=== PATIENT | male | born 1980 | race Two or more races ===

== ENCOUNTER 2016-11-18 01:36 | Emergency (ER) | payer SELFPAY ==
--- NOTE | 2016-11-18 02:26 | EDM.PDOC ---
ED HPI GENERAL MEDICAL PROBLEM - General Chief Complaint: Chest Pain Stated Complaint: CHEST PAIN Time Seen by Provider: 11/18/16 01:54 Source of Information: Reports: Patient, RN Notes Reviewed, Other (Friend) History Limitations: Reports: No Limitations - History of Present Illness INITIAL COMMENTS - FREE TEXT/NARRATIVE: The patient states that he developed pleuritic pain to the anterior lower right ribs this past 11/16/2016. Initially, the pain was mild, but it has gotten worse. He states that he is not having pain if remains perfectly still, unless he is in a certain position. He denies recent cough, dyspnea, or fever. He states that he has been taking Advil, without relief. No prior similar symptoms. The patient does not have a PCP. Treatments COMPONENT TECHNICIAN: Reports: Acetaminophen Right Chest Pain Score (Numeric/FACES): 8 - Related Data Allergies Allergy/AdvReac Type Severity Reaction Status Date / Time milk Allergy Cannot Verified 11/18/16 01:53 Remember Home Meds: Home Meds Orphenadrine [Norflex] 1 tab PO Q12H #20 tab.er 11/18/16 [Rx] Past Medical History - Past Surgical History GI Surgical History: Reports: Hernia, Abdominal (umbilical) Social & Family History - Tobacco Use Smoking Status *Q: Current Every Day Smoker Years of Tobacco use: 17 Packs/Tins Daily: 0.2 Packs/Tins Daily Comment: down from 02/09 ppd - Caffeine Use Caffeine Use: Reports: Coffee, Soda - Alcohol Use Alcohol Use History: No - Recreational Drug Use Recreational Drug Use: Yes Drug Use in Last 12 Months: Yes Recreational Drug Type: Reports: Marijuana/Hashish Recreational Drug Use Frequency: Socially - Living Situation & Occupation Living situation: Reports: with Family Occupation: Employed (Fast food) ED ROS GENERAL - Review of Systems Review Of Systems: See Below Constitutional: Reports: No Symptoms HEENT: Reports: No Symptoms Respiratory: Reports: No Symptoms Cardiovascular: Reports: No Symptoms Endocrine: Reports: No Symptoms GI/Abdominal: Reports: No Symptoms : Reports: No Symptoms Musculoskeletal: Reports: No Symptoms Skin: Reports: No Symptoms Neurological: Reports: No Symptoms Psychiatric: Reports: No Symptoms Hematologic/Lymphatic: Reports: No Symptoms Immunologic: Reports: No Symptoms ED EXAM, GENERAL - Physical Exam Exam: See Below Exam Limited By: No Limitations General Appearance: Alert, WD/WN, Mild Distress (tearful, anxious) Eye Exam: Bilateral Eye: Normal Inspection Ears: Normal External Exam, Hearing Grossly Normal Nose: Normal Inspection, No Blood Throat/Mouth: Normal Inspection, Normal Lips, Normal Voice, No Airway Compromise Head: Atraumatic, Normocephalic Neck: Normal Inspection, Full Range of Motion Respiratory/Chest: No Respiratory Distress, No Accessory Muscle Use, Crackles ( [place] over the anterior lower right ribs, at the site of the patient's pain), Other (Minimal tenderness to palpation over the anterior right lower ribs) Cardiovascular: Normal Peripheral Pulses, Regular Rate, Rhythm, No Gallop, No JVD, No Murmur, No Rub Peripheral Pulses: 4+: Radial (L), Radial (R) GI/Abdominal: Normal Bowel Sounds, Soft, Non-Tender (Including to the right upper quadrant), No Organomegaly, No Distention, No Abnormal Bruit, No Mass (Male) Exam: Deferred Rectal (Males) Exam: Deferred Back Exam: Normal Inspection, Full Range of Motion, NT Extremities: Normal Inspection, Normal Range of Motion, No Pedal Edema, Normal Capillary Refill Neurological: Alert, Oriented, Normal Cognition, No Motor/Sensory Deficits Psychiatric: Normal Affect, Anxious Skin Exam: Warm, Dry, Intact, Normal Color, No Rash Course - Vital Signs Last Recorded V/S: Last Vital Signs Temp 36.9 C 11/18/16 01:50 Pulse 64 11/18/16 01:50 Resp 20 11/18/16 01:50 BP 138/99 H 11/18/16 01:50 Pulse Ox 99 11/18/16 01:50 - Orders/Labs/Meds Orders: Active Orders 24 hr Category Date Time Status Chest 2V [CR] Stat Exams 11/18/16 02:17 Taken Labs: Laboratory Tests 11/18/16 11/18/16 11/18/16 Range/Units 02:30 02:30 02:30 WBC 6.73 (4.23-9.07) K/mm3 RBC 4.50 L (4.63-6.08) M/mm3 Hgb 13.9 (13.7-17.5) gm/L Hct 40.0 L (40.1-51.0) % MCV 88.9 (79.0-92.2) fl MCH 30.9 (25.7-32.2) pg MCHC 34.8 (32.2-35.5) g/dl RDW Std Deviation 43.0 (35.1-43.9) fL Plt Count 211 (163-337) K/mm3 MPV 10.0 (9.4-12.3) fl Neutrophils % (Manual) 32 L (40-60) % Band Neutrophils % 0 (0-10) % Lymphocytes % (Manual) 61 H (20-40) % Atypical Lymphs % 0 % Monocytes % (Manual) 5 (2-10) % Eosinophils % (Manual) 0 L (0.8-7.0) % Basophils % (Manual) 2 H (0.2-1.2) Platelet Estimate Adequate RBC Morph Comment Normal PT 9.8 (8.0-13.0) SECONDS INR 0.90 APTT 27 (22-36) SECONDS D-Dimer, Quantitative 0.23 (0.19-0.59) mg/L Sodium 140 (136-145) mEq/L Potassium 3.8 (3.5-5.1) mEq/L Chloride 105 (98-107) mEq/L Carbon Dioxide 25 (21-32) mEq/L Anion Gap 13.8 (5-15) BUN 13 (7-18) mg/dL Creatinine 0.9 (0.7-1.3) mg/dL Est Cr Clr Drug Dosing 110.25 mL/min Estimated GFR (MDRD) > 60 (>60) mL/min BUN/Creatinine Ratio 14.4 (14-18) Glucose 103 (74-106) mg/dL Calcium 8.8 (8.5-10.1) mg/dL Total Bilirubin 0.5 (0.2-1.0) mg/dL AST 16 (15-37) U/L ALT 20 (16-63) U/L Alkaline Phosphatase 55 (46-116) U/L Total Protein 7.1 (6.4-8.2) g/dl Albumin 3.8 (3.4-5.0) g/dl Globulin 3.3 gm/dL Albumin/Globulin Ratio 1.2 (1-2) Meds: Medications Discontinued Medications Generic Name Dose Route Start Last Admin Trade Name Freq PRN Reason Stop Dose Admin Orphenadrine Citrate 100 mg 11/18/16 03:02 11/18/16 03:12 Norflex PO 11/18/16 03:03 100 mg ONETIME STA Administration - Re-Assessments/Exams Free Text/Narrative Re-Assessment/Exam: 11/18/16 03:01 Two-view chest radiograph appears to be grossly normal. Cardiac silhouette is within normal limits. No pulmonary vascular congestion. No pleural effusions. No focal infiltrate, although cannot exclude platelike atelectasis at the right base. No pneumothorax. Formal read per the Radiologist pending. 11/18/16 03:14 Test results discussed with the patient and his friend. Today's workup is entirely unremarkable. Clinically, I suspect that the patient is suffering from spasm of an intercostal muscle. I have started the patient on Norflex, and will e-prescribe the same. Departure - Departure Time of Disposition: 03:14 Disposition: Home, Self-Care 01 Condition: Good Clinical Impression: Intercostal muscle pain - Discharge Information Referrals: PCP,None [Primary Care Provider] - Forms: ED Department Discharge Additional Instructions: You were seen in the emergency room for lower right rib pain with breathing. Workup in the ER included blood work and a chest x-ray. Your entire workup was unremarkable. You do not have pneumonia. You do not have a collapsed lung. You do not have a blood clot in your lungs. The cause of your pain is MOST LIKELY due to a spasm of some intercostal muscles. You have been started on the muscle relaxant Norflex. Take one tablet every 12 hours, starting this afternoon, 11/18/2016. You may also take [id number] ibuprofen, 2-3 tablets (400-600 mg) up to every 8 hours, with food, as needed for discomfort. If any other problems, please do not hesitate to return to the ER. - My Orders Last 24 Hours: My Active Orders 11/18/16 02:17 Chest 2V [CR] Stat - Assessment/Plan Last 24 Hours: My Active Orders 11/18/16 02:17 Chest 2V [CR] Stat
[2016-11-18] MEDS ORDERED: Orphenadrine 100 MG Tab.ER PO STA (03:02)
--- NOTE | 2016-11-18 08:21 | CR ---
Chest: Two views of the chest were obtained. Comparison: No prior chest x-ray. Minimal atelectasis is seen within both costophrenic angles. Lungs otherwise are clear. Heart size and mediastinum are within normal limits. Bony structures appear unremarkable. Impression: 1. Minimal atelectasis. Nothing acute is otherwise seen on two-view chest x-ray. Diagnostic code #2
== END 2016-11-18 03:23 | disposition home or self-care (01) ==
LOC: JD.ED 01:36
DX: M79.1 Myalgia (principal); F17.210 Nicotine dependence, cigarettes, uncomplicated; Z91.011 Allergy to milk products
CPT/HCPCS: 36415; 71020; 80053; 85025; 85379; 85610; 85730; 99284; A9270

== ENCOUNTER 2017-05-28 20:31 | Emergency (ER) | payer SELFPAY ==
[2017-05-28] MEDS ORDERED: Ketorolac 60 MG/2 ML SDV IM ONE (21:14)
--- NOTE | 2017-05-28 21:14 | EDM.PDOC ---
ED HPI GENERAL MEDICAL PROBLEM - General Chief Complaint: Back Pain or Injury Stated Complaint: NECK AND BACK PAIN Time Seen by Provider: 05/28/17 20:33 Source of Information: Reports: Patient History Limitations: Reports: No Limitations - History of Present Illness INITIAL COMMENTS - FREE TEXT/NARRATIVE: This is a 36-year-old male. He states he woke up at 6 AM this morning with upper back and neck pain. Apparently he's had this in the past and normally takes some ibuprofen and used some icy hot but it hasn't been helping. He tried to get into the chiropractor this evening but they were closed. I asked him why he didn't go sooner since it's been hurting since 6 AM he says he slept late. He complains of soreness in his upper thoracic lower cervical area. He states occasionally he'll get some tingling in his arms but nothing right now. All that he's used at home has not been helping. I indicated to him that once his fianc is here I will give him a shot and give him a muscle relaxer and he needs to follow up with the chiropractor tomorrow if he is able. Left Upper Back Pain Score (Numeric/FACES): 8 - Related Data Allergies Allergy/AdvReac Type Severity Reaction Status Date / Time milk Allergy Cannot Verified 11/18/16 01:53 Remember Home Meds: Home Meds . [No Known Home Meds] 05/28/17 [History] Past Medical History - Past Surgical History GI Surgical History: Reports: Hernia, Abdominal Other GI Surgeries/Procedures: with mesh Social & Family History - Tobacco Use Smoking Status *Q: Current Every Day Smoker Years of Tobacco use: 15 Packs/Tins Daily: 0.3 - Caffeine Use Caffeine Use: Reports: Coffee, Energy Drinks, Soda, Tea - Recreational Drug Use Recreational Drug Use: No Drug Use in Last 12 Months: Yes Recreational Drug Type: Reports: Marijuana/Hashish Recreational Drug Use Frequency: Socially - Living Situation & Occupation Living situation: Reports: with Family Occupation: Employed (Fast food) ED ROS GENERAL - Review of Systems Review Of Systems: See Below Constitutional: Denies: Fever, Chills HEENT: Reports: No Symptoms Respiratory: Reports: No Symptoms Cardiovascular: Reports: No Symptoms Endocrine: Reports: No Symptoms GI/Abdominal: Reports: No Symptoms : Reports: No Symptoms Musculoskeletal: Reports: Neck Pain, Back Pain Skin: Reports: No Symptoms Neurological: Reports: Tingling Psychiatric: Reports: No Symptoms Hematologic/Lymphatic: Reports: No Symptoms ED EXAM, UPPER BACK/NECK PAIN - Physical Exam Exam: See Below Exam Limited By: No Limitations General Appearance: Alert, WD/WN, No Apparent Distress Eye Exam: Bilateral Eye: Normal Inspection Ears Exam: Normal External Exam Nose Exam: Normal Inspection Throat/Mouth Exam: Normal Inspection, Normal Lips, Normal Voice, No Airway Compromise Head Exam: Normocephalic Neck Exam: Other (Palpation of the base of the neck reveals some trapezius muscle tenderness, he tends to not want to turn his head or flex it or extend it he says because it hurts and he is able to lie down and sit up despite the neck stiffness. He has no nuchal rigidity however.) Cardiovascular/Respiratory: Regular Rate, Rhythm Back Exam: Other (The upper rhomboids and trapezius muscles are tender on palpation, he tends to be somewhat apprehensive when I palpate those muscles, the mid and lower back are nontender and he moves freely with those areas) Extremities: Normal Inspection, Normal Range of Motion Neurologic: No Motor/Sensory Deficits, Alert, Oriented x 3 Psychiatric: Normal Affect, Normal Mood Skin Exam: Normal Color, Warm/Dry Course - Vital Signs Last Recorded V/S: Last Vital Signs Temp 98.7 F 05/28/17 20:55 Pulse 111 H 05/28/17 21:26 Resp 14 05/28/17 21:26 BP 93/71 05/28/17 21:26 Pulse Ox 99 05/28/17 21:26 - Orders/Labs/Meds Meds: Medications Discontinued Medications Generic Name Dose Route Start Last Admin Trade Name Tonyq PRN Reason Stop Dose Admin Ketorolac Tromethamine 60 mg 05/28/17 21:14 05/28/17 21:24 Toradol IM 05/28/17 21:15 60 mg ONETIME ONE Administration Orphenadrine Citrate 100 mg 05/29/17 21:15 05/28/17 21:24 Norflex PO 05/29/17 21:16 100 mg ONETIME ONE Administration Orphenadrine Citrate Confirm 05/28/17 21:22 05/28/17 21:31 Norflex Administered 05/28/17 21:23 Not Given Dose 100 mg .ROUTE .STK-MED ONE Departure - Departure Time of Disposition: 21:12 Disposition: Home, Self-Care 01 Condition: Good Clinical Impression: Muscle tightness Cervical strain Qualifiers: Encounter type: initial encounter Qualified Code(s): S16.1XXA - Strain of muscle, fascia and tendon at neck level, initial encounter Strain of thoracic spine Qualifiers: Encounter type: initial encounter Qualified Code(s): S29.019A - Strain of muscle and tendon of unspecified wall of thorax, initial encounter - Discharge Information Instructions: Cervical Strain and Sprain Rehab-Sports[facility], Thoracic Strain, Easy -to-Read Referrals: PCP,None [Primary Care Provider] - Forms: ED Department Discharge Additional Instructions: When you go home and try a heating pad, rest and sleep as much as possible, follow-up your chiropractor tomorrow for reevaluation and manipulation of your neck and upper back, return to the ER if needed
[2017-05-28] MEDS ORDERED: Orphenadrine 100 MG Tab.ER ONE (21:22)
[2017-05-29] MEDS ORDERED: Orphenadrine 100 MG Tab.ER PO ONE (21:15)
== END 2017-05-28 21:38 | disposition home or self-care (01) ==
LOC: JD.ED 20:31
DX: S16.1XXA Strain of muscle, fascia and tendon at neck level, initial encounter (principal); S29.019A Strain of muscle and tendon of unspecified wall of thorax, initial encounter; F17.210 Nicotine dependence, cigarettes, uncomplicated; Z91.011 Allergy to milk products; X58.XXXA Exposure to other specified factors, initial encounter
CPT/HCPCS: 96372; 99283; A9270; J1885

== ENCOUNTER 2017-07-20 14:11 | Emergency (ER) | payer SELFPAY ==
--- NOTE | 2017-07-20 15:56 | EDM.PDOC ---
ED HPI GENERAL MEDICAL PROBLEM - General Chief Complaint: Gastrointestinal Problem Stated Complaint: TROUBLE WITH URINATION AND BOWELS Time Seen by Provider: 07/20/17 14:56 Source of Information: Reports: Patient History Limitations: Reports: No Limitations - History of Present Illness INITIAL COMMENTS - FREE TEXT/NARRATIVE: 36 year old male presents for evaluation and treatment of multiple complaints. Patient reprots he is having difficulty passing stool. He has only been having small, hard bowel movements daily. Reports feeling uncomfortable and an odd sensation in his abdomen. Denies any melanic stools. Questionable blood in his stool wednesday after intercourse with his partner but none since. Reports no dietary changes. No fevers, chills, nausea or vomiting. Robbin also reports he is having difficulty urinating. State she has to force his urine out. Only dribbling a small amount of urine. No dysuria. No penile discharge. Patient has also noticed small lumps to his right groin fo the last year. They are not tender. Easily movable. HE has been checking them regularity and they have not changed. Patient does not have a PCP. Treatments FITNESS SUPERVISOR: Reports: Other (see below) Other Treatments FITNESS SUPERVISOR: enema abdomen Pain Score (Numeric/FACES): 4 - Related Data Allergies Allergy/AdvReac Type Severity Reaction Status Date / Time milk Allergy Cannot Verified 07/22/17 06:20 Remember Home Meds: Home Meds . [No Known Home Meds] 05/28/17 [History] Past Medical History - Past Health History Medical/Surgical History: Denies Medical/Surgical History - Past Surgical History GI Surgical History: Reports: Hernia, Abdominal Other GI Surgeries/Procedures: with mesh Social & Family History - Family History Family Medical History: Noncontributory - Tobacco Use Smoking Status *Q: Former Smoker Used Tobacco, but Quit: No - Caffeine Use Caffeine Use: Reports: Coffee, Soda - Recreational Drug Use Recreational Drug Use: No - Living Situation & Occupation Living situation: Reports: with Family Occupation: Employed (Fast food) ED ROS GENERAL - Review of Systems Review Of Systems: See Below Constitutional: Denies: Fever, Chills GI/Abdominal: Denies: Abdominal Pain, Hematemesis, Melena, Nausea, Vomiting : Reports: Other (reports dribbling urine; no penile discharge; reports small BB sized hard lumps to the right groin). Denies: Dysuria ED EXAM, GI/ABD - Physical Exam Exam: See Below Exam Limited By: No Limitations General Appearance: Alert, WD/WN, No Apparent Distress Ears: Normal External Exam Nose: Normal Inspection Throat/Mouth: Normal Inspection, Normal Lips, Normal Voice, No Airway Compromise Respiratory/Chest: No Respiratory Distress, Lungs Clear, Normal Breath Sounds Cardiovascular: Normal Peripheral Pulses, Regular Rate, Rhythm, No Murmur GI/Abdominal Exam: Normal Bowel Sounds, Soft, Non-Tender (Male) Exam: Normal Inspection, Other (BB sized hard, movable lumps to the right groin; likely small cysts or calcifications). No: Inguinal Lymphadenopathy Neurological: Alert, Oriented, Normal Cognition Psychiatric: Normal Affect, Normal Mood Skin Exam: Warm, Dry, Normal Color Course - Vital Signs Last Recorded V/S: Last Vital Signs Temp 97.4 F 07/20/17 14:20 Pulse 62 07/20/17 14:20 Resp 18 07/20/17 14:20 BP 129/88 07/20/17 14:20 Pulse Ox 99 07/20/17 14:20 - Orders/Labs/Meds Labs: Laboratory Tests 07/20/17 Range/Units 15:22 Urine Color Yellow (Yellow) Urine Appearance Clear (Clear) Urine pH 7.0 (5.0-8.0) Ur Specific [place] 1.025 (1.005-1.030) Urine Protein Negative (Negative) Urine Glucose (UA) Negative (Negative) Urine Ketones Negative (Negative) Urine Occult Blood Negative (Negative) Urine Nitrite Negative (Negative) Urine Bilirubin Negative (Negative) Urine Urobilinogen 0.2 (0.2-1.0) Ur Leukocyte Esterase Negative (Negative) Urine RBC 0-5 (0-5) /hpf Urine WBC 0-5 (0-5) /hpf Ur Epithelial Cells 0-5 (0-5) /hpf Urine Bacteria Few (FEW) /hpf Urine Mucus Moderate H (FEW) /hpf - Radiology Interpretation Free Text/Narrative:: KUB shows a normal gas pattern. No acute process. - Re-Assessments/Exams Free Text/Narrative Re-Assessment/Exam: 07/20/17 16:10 I reviewed the xray and UA results with the patient. I will have him try some oral medications at home for constipation. Bladder scan showed only 20mls in his bladder. Will discharge home at this time. Discharge instructions as documented. Departure - Departure Time of Disposition: 16:11 Disposition: Home, Self-Care 01 Condition: Fair Clinical Impression: Constipation - Discharge Information Instructions: Constipation, Adult, [id number] Referrals: PCP,Mayco [Primary Care Provider] - Jeny Burnham, PIPE BENDING MACHINE OPERATOR [Nurse Practitioner] - Forms: ED Department Discharge Additional Instructions: Make sure you're drinking plenty of fluids. Recommend MiraLAX. This is available [id number]. Take this daily or every other day for normal bowel maintenance. Today recommend purchasing a bottle magnesium citrate. Drink approximately half the bottle. If you do not have a large bowel movement within 8-12 hours drink the second half of the bottle. If you continue to have symptoms recommend follow-up with family medicine. Recommend Jeny Burnham [facility]. Call [phone] to schedule with her. Please return to the ER if your symptoms change or worsen.
--- NOTE | 2017-07-21 07:44 | CR ---
Abdomen: Supine view of the abdomen was obtained. Comparison: No prior abdominal x-ray. Bowel gas pattern is normal. Calcifications are seen within the pelvis which are compatible with phleboliths. No soft tissue abnormality is seen. Bony structures are unremarkable. Impression: 1. Incidental findings. Diagnostic code #2
== END 2017-07-20 16:24 | disposition home or self-care (01) ==
LOC: JD.ED 14:11
DX: K59.00 Constipation, unspecified (principal); Z91.011 Allergy to milk products; Z87.891 Personal history of nicotine dependence
CPT/HCPCS: 74018; 74018-26; 81001; 99283; 99284

== ENCOUNTER 2017-07-22 01:41 | Emergency (ER) | payer SELFPAY ==
--- NOTE | 2017-07-22 03:48 | EDM.PDOC ---
ED HPI GENERAL MEDICAL PROBLEM - General Chief Complaint: Gastrointestinal Problem Stated Complaint: STOMACH ISSUES AND PAIN IN LEGS AND TESTICLES Time Seen by Provider: 07/22/17 03:11 Source of Information: Reports: Patient, Old Records History Limitations: Reports: No Limitations - History of Present Illness INITIAL COMMENTS - FREE TEXT/NARRATIVE: The patient states that he has had lower abdominal pain for the past 2 years. He acknowledges that he has not previously sought medical evaluation for it. He reports pain to his rectum, his testes, and the posterior aspect of both of his lower extremities, although it was feet, since 07/20/2017. No recent trauma. He feels constipated, possibly having dysuria, and likely has urinary frequency. Medical records indicate that the patient was seen in this ED for these symptoms on 06/19/2017. He was found to be hemodynamically stable and afebrile. A urinalysis was unremarkable. A single view of abdominal flat radiograph was unremarkable, however, the patient was told that he had constipation, and he was instructed to drink plenty of fluids and take MiraLAX along with magnesium citrate. The patient states that he took the MiraLAX, but not the magnesium citrate. He states that his symptoms have not improved. He has an appointment to be seen by someone - he does not know their name - at 09:00 this morning, but states that he simply could not wait until then. The patient's discharge instructions from refer him to Jeny Burnham NP, but the patient does not recall if that is who he has an appointment with or not. Perineal Area Pain Score (Numeric/FACES): 9 - Related Data Allergies Allergy/AdvReac Type Severity Reaction Status Date / Time milk Allergy Cannot Verified 07/20/17 14:25 Remember Home Meds: Home Meds . [No Known Home Meds] 05/28/17 [History] Past Medical History - Past Surgical History GI Surgical History: Reports: Hernia, Abdominal Musculoskeletal Surgical History: Reports: Other (See Below) (Right hand laceration repair, Left knee laceration repair) Social & Family History - Family History Family Medical History: Noncontributory - Tobacco Use Smoking Status *Q: Former Smoker Month/Year Tobacco Last Used: Quit 07/05/17 - Caffeine Use Caffeine Use: Reports: Coffee, Soda - Alcohol Use Alcohol Use History: No - Recreational Drug Use Recreational Drug Use: Yes Drug Use in Last 12 Months: Yes Recreational Drug Type: Reports: Marijuana/Hashish (last smoked around May 2017) - Living Situation & Occupation Living situation: Reports: , with Spouse Occupation: Unemployed ED ROS GENERAL - Review of Systems Review Of Systems: ROS reveals no pertinent complaints other than HPI. ED EXAM, GENERAL - Physical Exam Exam: See Below Exam Limited By: No Limitations General Appearance: Alert, WD/WN, No Apparent Distress Eye Exam: Bilateral Eye: Normal Inspection Ears: Normal External Exam, Hearing Grossly Normal Nose: Normal Inspection, No Blood Throat/Mouth: Normal Inspection, Normal Lips, Normal Voice, No Airway Compromise Head: Atraumatic, Normocephalic Neck: Normal Inspection, Full Range of Motion Respiratory/Chest: No Respiratory Distress, Lungs Clear, Normal Breath Sounds, No Accessory Muscle Use Cardiovascular: Normal Peripheral Pulses, Regular Rate, Rhythm, No Edema, No Gallop, No JVD, No Murmur, No Rub Peripheral Pulses: 4+: Radial (L), Radial (R) GI/Abdominal: Normal Bowel Sounds, Soft, No Organomegaly, No Distention, No Abnormal Bruit, No Mass, Tender (Mild, non-specific. No particular tenderness to the lower abdomen.) (Male) Exam: No Hernia, Normal Inspection, Cremasteric Reflex. No: Circumcised, Hernia, Inguinal Lymphadenopathy, Penile Lesions, Rash, Scrotal Swelling, Scrotum Tenderness (L), Scrotum Tenderness (R), Suprapubic Fullness, Testicular Mass, Testicular Tenderness (L), Testicular Tenderness (R), Urethral Discharge Rectal (Males) Exam: Deferred Back Exam: Normal Inspection, Full Range of Motion. No: CVA Tenderness (L), CVA Tenderness (R) Extremities: Normal Inspection, Normal Range of Motion, No Pedal Edema, Normal Capillary Refill Neurological: Alert, Oriented, Normal Cognition, No Motor/Sensory Deficits Psychiatric: Anxious Skin Exam: Warm, Dry, Intact, Normal Color, No Rash Course - Vital Signs Last Recorded V/S: Last Vital Signs Temp 36.8 C 07/22/17 01:48 Pulse 78 07/22/17 01:48 Resp 18 07/22/17 01:48 BP 125/102 H 07/22/17 01:48 Pulse Ox 99 07/22/17 01:48 - Orders/Labs/Meds Orders: Active Orders 24 hr Category Date Time Status UA W/MICROSCOPIC [URIN] Stat Lab 07/22/17 03:43 Ordered Labs: Laboratory Tests 07/22/17 07/22/17 Range/Units 03:43 03:43 Urine Color Yellow (Yellow) Urine Appearance Slt cloudy H (Clear) Urine pH 6.5 (5.0-8.0) Ur Specific [place] > or = 1.030 (1.005-1.030) Urine Protein Negative (Negative) Urine Glucose (UA) Negative (Negative) Urine Ketones Negative (Negative) Urine Occult Blood Trace-intact H (Negative) Urine Nitrite Negative (Negative) Urine Bilirubin Negative (Negative) Urine Urobilinogen 0.2 (0.2-1.0) Ur Leukocyte Esterase Negative (Negative) Urine RBC 0-5 (0-5) /hpf Urine WBC 0-5 (0-5) /hpf Ur Epithelial Cells 0-5 (0-5) /hpf Urine Bacteria Rare (FEW) /hpf Hyaline Casts 0-5 (0-5) /lpf Urine Mucus Moderate H (FEW) /hpf C trachomatis DNA (PCR) Not detected N gonorrhoeae DNA (PCR) Not detected - Re-Assessments/Exams Free Text/Narrative Re-Assessment/Exam: 07/22/17 05:57 Test results discussed with the patient. His urinalysis, and urine GC/Chlamydia are normal. He does not have a urinary tract infection, nor gonorrhea, nor Chlamydia. The cause of his symptoms is unclear, but no emergency medical condition appears to be present. He has an appointment to see - he believes - Jeny Burnham NP, at 09:00 this morning. She would be in a position to order a diagnostic evaluation. Departure - Departure Time of Disposition: 05:59 Disposition: Home, Self-Care 01 Condition: Good Clinical Impression: Lower abdominal pain of unknown etiology, Rectal pain, Testes pain, Lower extremity pain, posterior - Discharge Information Referrals: PCP,None [Primary Care Provider] - Jeny Burnham NP [Nurse Practitioner] - Forms: ED Department Discharge Additional Instructions: You were seen in the emergency room for lower abdominal pain, rectal pain, testes pain, and pain down the back of both of your lower extremities, all the way to your feet. Workup in the ER included a urinalysis and a urine gonorrhea/chlamydia test. Your entire workup was negative, and does not explain the cause of your symptoms. Follow-up with Jeny Burnham at your previously scheduled appointment this morning at 09:00, for further evaluation. If any other problems, please do not hesitate to return to the ER. - My Orders Last 24 Hours: My Active Orders 07/22/17 03:43 UA W/MICROSCOPIC [URIN] Stat - Assessment/Plan Last 24 Hours: My Active Orders 07/22/17 03:43 UA W/MICROSCOPIC [URIN] Stat
== END 2017-07-22 06:17 | disposition home or self-care (01) ==
LOC: JD.ED 01:41
DX: R10.30 Lower abdominal pain, unspecified (principal); K62.89 Other specified diseases of anus and rectum; N50.812 Left testicular pain; N50.811 Right testicular pain; M79.662 Pain in left lower leg; M79.661 Pain in right lower leg; Z87.891 Personal history of nicotine dependence; Z91.011 Allergy to milk products
CPT/HCPCS: 99283; 99284

== ENCOUNTER 2017-08-18 16:04 | Emergency (ER) | payer SELFPAY ==
[2017-08-18] MEDS ORDERED: Sodium Chloride 0.9% 10 ML Syringe FLUSH PRN (16:40)
[2017-08-18] MEDS ORDERED: HYDROmorphone 0.5 MG/0.5 ML SYRINGE IVPUSH ONE (16:43)
[2017-08-18] MEDS ORDERED: Ondansetron 4 MG/2 ML SDV IVPUSH ONE (16:43)
[2017-08-18] MEDS ORDERED: Sodium Chloride 0.9% 1,000 ML IV SCH (16:45)
--- NOTE | 2017-08-18 18:07 | EDM.PDOC ---
ED HPI GENERAL MEDICAL PROBLEM - General Chief Complaint: ENT Problem Stated Complaint: HEAD HURTS/TROUBLE BREATHING Time Seen by Provider: 08/18/17 16:25 Source of Information: Reports: Patient History Limitations: Reports: No Limitations - History of Present Illness INITIAL COMMENTS - FREE TEXT/NARRATIVE: The patient presents with a few complaints. He has a headache, nausea, vomiting , sore throat, chills, left sided abdominal pain that comes and goes and shortness of breath. He said he just got back from [place] and he was doing fine until about the last day adn he started having symptoms. This has gotten worse and he was at work at [employer] he was at the [employer] and he got much worse. He does not think he was around anyone who was sick. His is not sick. He did not eat any bad food. The abdominal pain comes and goes to the left side. He has a cough. Onset: Gradual Duration: Day(s): Location: Reports: Abdomen Quality: Reports: Ache Severity: Mild Improves with: Reports: None Worsens with: Reports: None Associated Symptoms: Reports: Fever/Chills, Nausea/Vomiting. Denies: Chest Pain , Cough, Headaches, Shortness of Breath Headache Pain Score (Numeric/FACES): 2 Throat Pain Score (Numeric/FACES): 7 - Related Data Allergies Allergy/AdvReac Type Severity Reaction Status Date / Time milk Allergy Cannot Verified 08/18/17 16:19 Remember Home Meds: Home Meds . [No Known Home Meds] 05/28/17 [History] Past Medical History - Past Health History Medical/Surgical History: Denies Medical/Surgical History - Past Surgical History GI Surgical History: Reports: Hernia, Abdominal Other GI Surgeries/Procedures: with mesh Musculoskeletal Surgical History: Reports: Other (See Below) Social & Family History - Family History Family Medical History: Noncontributory - Tobacco Use Smoking Status *Q: Former Smoker Used Tobacco, but Quit: Yes Month/Year Tobacco Last Used: july - Caffeine Use Caffeine Use: Reports: Coffee, Soda - Recreational Drug Use Recreational Drug Use: No - Living Situation & Occupation Living situation: Reports: , with Spouse Occupation: Unemployed ED ROS ENT - Review of Systems Review Of Systems: See Below Constitutional: Reports: Chills. Denies: Fever HEENT: Reports: Throat Pain Respiratory: Reports: Shortness of Breath, Cough Cardiovascular: Reports: No Symptoms Endocrine: Reports: Fatigue GI/Abdominal: Reports: Abdominal Pain, Nausea, Vomiting. Denies: Diarrhea : Reports: No Symptoms Musculoskeletal: Reports: No Symptoms ED EXAM, ENT - Physical Exam Exam: See Below Exam Limited By: No Limitations General Appearance: Alert, No Apparent Distress Ears: Normal External Exam Nose: Normal Inspection Mouth/Throat: Pharyngeal Erythema (Mild) Head: Atraumatic, Normocephalic Neck: Normal Inspection Respiratory/Chest: No Respiratory Distress, Lungs Clear, Normal Breath Sounds Cardiovascular: Regular Rate, Rhythm, No Edema, No Murmur GI/Abdominal: Soft, Non-Tender, No Organomegaly, No Mass Back: Normal Inspection Extremities: Normal Inspection Neurological: Alert, Oriented, No Motor/Sensory Deficits Course - Vital Signs Last Recorded V/S: Last Vital Signs Temp 97.5 F 08/18/17 16:20 Pulse 106 H 08/18/17 16:20 Resp 18 08/18/17 16:20 BP 136/79 08/18/17 16:20 Pulse Ox 100 08/18/17 16:20 - Orders/Labs/Meds Orders: Active Orders 24 hr Category Date Time Status Cardiac Monitoring [RC] . DIRECTED Care 08/18/17 16:41 Active Peripheral IV Care [RC] . DIRECTED Care 08/18/17 16:43 Active CXR [Chest 2V] [CR] Stat Exams 08/18/17 17:55 Taken CULTURE STREP A CONFIRMATION [RM] Stat Lab 08/18/17 18:00 Results STREP SCRN A RAPID W CULT CONF [RM] Stat Lab 08/18/17 18:00 Ordered UA W/MICROSCOPIC [URIN] Stat Lab 08/18/17 17:15 Ordered Sodium Chloride 0.9% [Normal Saline] 1,000 ml Med 08/18/17 16:45 Active IV .BOLUS Sodium Chloride 0.9% [Saline Flush] Med 08/18/17 16:40 Active 10 ml FLUSH ASDIRECTED PRN Peripheral IV Insertion Adult [OM.PC] Stat Oth 08/18/17 16:40 Ordered Medication Orders Sodium Chloride (Normal Saline) 1,000 mls @ 1,000 mls/hr IV .BOLUS HUGO Last Admin: 08/18/17 17:07 Dose: 1,000 mls/hr Sodium Chloride (Saline Flush) 10 ml FLUSH ASDIRECTED PRN PRN Reason: Keep Vein Open Last Admin: 08/18/17 17:07 Dose: 10 ml Labs: Laboratory Tests 08/18/17 08/18/17 08/18/17 Range/Units 17:00 17:00 17:15 WBC 6.54 (4.23-9.07) K/mm3 RBC 4.33 L (4.63-6.08) M/mm3 Hgb 13.5 L (13.7-17.5) gm/L Hct 38.3 L (40.1-51.0) % MCV 88.5 (79.0-92.2) fl MCH 31.2 (25.7-32.2) pg MCHC 35.2 (32.2-35.5) g/dl RDW Std Deviation 41.1 (35.1-43.9) fL Plt Count 218 (163-337) K/mm3 MPV 10.2 (9.4-12.3) fl Neut % (Auto) 37.0 (34.0-67.9) % Lymph % (Auto) 51.2 (21.8-53.1) % [place] % (Auto) 8.0 (5.3-12.2) % Eos % (Auto) 3.5 (0.8-7.0) Baso % (Auto) 0.3 (0.1-1.2) % Neut # (Auto) 2.42 (1.78-5.38) K/mm3 Lymph # (Auto) 3.35 (1.32-3.57) K/mm3 [place] # (Auto) 0.52 (0.30-0.82) K/mm3 Eos # (Auto) 0.23 (0.04-0.54) K/mm3 Baso # (Auto) 0.02 (0.01-0.08) K/mm3 Sodium 138 (136-145) mEq/L Potassium 3.2 L (3.5-5.1) mEq/L Chloride 103 (98-107) mEq/L Carbon Dioxide 27 (21-32) mEq/L Anion Gap 11.2 (5-15) BUN 20 H (7-18) mg/dL Creatinine 1.3 (0.7-1.3) mg/dL Est Cr Clr Drug Dosing 74.15 mL/min Estimated GFR (MDRD) > 60 (>60) mL/min BUN/Creatinine Ratio 15.4 (14-18) Glucose 89 (74-106) mg/dL Calcium 8.5 (8.5-10.1) mg/dL Total Bilirubin 1.4 H (0.2-1.0) mg/dL AST 18 (15-37) U/L ALT 48 (16-63) U/L Alkaline Phosphatase 47 (46-116) U/L C-Reactive Protein 0.2 (<1.0) mg/dL Total Protein 7.1 (6.4-8.2) g/dl Albumin 3.8 (3.4-5.0) g/dl Globulin 3.3 gm/dL Albumin/Globulin Ratio 1.2 (1-2) Urine Color Yellow (Yellow) Urine Appearance Clear (Clear) Urine pH 6.0 (5.0-8.0) Ur Specific [place] 1.010 (1.005-1.030) Urine Protein Negative (Negative) Urine Glucose (UA) Negative (Negative) Urine Ketones Negative (Negative) Urine Occult Blood Negative (Negative) Urine Nitrite Negative (Negative) Urine Bilirubin Negative (Negative) Urine Urobilinogen 0.2 (0.2-1.0) Ur Leukocyte Esterase Negative (Negative) Urine RBC 0-5 (0-5) /hpf Urine WBC 0-5 (0-5) /hpf Ur Epithelial Cells 0-5 (0-5) /hpf Urine Bacteria Rare (FEW) /hpf Urine Mucus Few (FEW) /hpf Meds: Medications Generic Name Dose Route Start Last Admin Trade Name Freq PRN Reason Stop Dose Admin Sodium Chloride 1,000 mls @ 1,000 mls/hr 08/18/17 16:45 08/18/17 17:07 Normal Saline IV 1,000 mls/hr .BOLUS HUGO Administration Sodium Chloride 10 ml 08/18/17 16:40 08/18/17 17:07 Saline Flush FLUSH 10 ml ASDIRECTED PRN Administration Keep Vein Open Discontinued Medications Generic Name Dose Route Start Last Admin Trade Name Freq PRN Reason Stop Dose Admin Hydromorphone HCl 0.5 mg 08/18/17 16:43 08/18/17 17:12 Dilaudid IVPUSH 08/18/17 16:44 0.5 mg ONETIME ONE Administration Ondansetron HCl 4 mg 08/18/17 16:43 08/18/17 17:07 Zofran IVPUSH 08/18/17 16:44 4 mg ONETIME ONE Administration - Re-Assessments/Exams Free Text/Narrative Re-Assessment/Exam: 08/18/17 18:09 I ordered an IV NS 1L bolus, zofran 4mg IV, dilaudid 0.5mg IV, labs, UA, throat swab and a CXR. 08/18/17 19:15 His CBC and CMP look good except his K was a little low at 3.2. His CXR looks good. His UA is negative. His rapid strep was negative. Departure - Departure Time of Disposition: 19:25 Disposition: Home, Self-Care 01 Condition: Good Clinical Impression: Viral URI, Viral pharyngitis - Discharge Information *PRESCRIPTION DRUG MONITORING PROGRAM REVIEWED*: No *COPY OF PRESCRIPTION DRUG MONITORING REPORT IN PATIENT SATYA: No Referrals: PCP,None [Primary Care Provider] - Lindsey Castano PA-C [Physician Insurance Biller] - Forms: ED Department Discharge, ED Return to Work/School Form Additional Instructions: Go home and rest. Drink plenty of fluids. Take motrin or tylenol for any pain. Please return if you are worse. - My Orders Last 24 Hours: My Active Orders 08/18/17 16:40 Sodium Chloride 0.9% [Saline Flush] 10 ml FLUSH ASDIRECTED PRN Peripheral IV Insertion Adult [OM.PC] Stat 08/18/17 16:41 Cardiac Monitoring [RC] . DIRECTED 08/18/17 16:43 Peripheral IV Care [RC] . DIRECTED 08/18/17 16:45 Sodium Chloride 0.9% [Normal Saline] 1,000 ml IV .BOLUS 08/18/17 17:15 UA W/MICROSCOPIC [URIN] Stat 08/18/17 17:55 CXR [Chest 2V] [CR] Stat 08/18/17 18:00 CULTURE STREP A CONFIRMATION [RM] Stat STREP SCRN A RAPID W CULT CONF [] Stat - Assessment/Plan Last 24 Hours: My Active Orders 08/18/17 16:40 Sodium Chloride 0.9% [Saline Flush] 10 ml FLUSH ASDIRECTED PRN Peripheral IV Insertion Adult [OM.PC] Stat 08/18/17 16:41 Cardiac Monitoring [RC] . DIRECTED 08/18/17 16:43 Peripheral IV Care [RC] . DIRECTED 08/18/17 16:45 Sodium Chloride 0.9% [Normal Saline] 1,000 ml IV .BOLUS 08/18/17 17:15 UA W/MICROSCOPIC [URIN] Stat 08/18/17 17:55 CXR [Chest 2V] [CR] Stat 08/18/17 18:00 CULTURE STREP A CONFIRMATION [RM] Stat STREP SCRN A RAPID W CULT CONF [RM] Stat
--- NOTE | 2017-08-19 08:09 | CR ---
Chest: Two views of the chest were obtained. Comparison: Prior chest x-ray of 11/18/16. Heart size and mediastinum are normal. Lungs are clear. Bony structures appear within normal limits for the patient's age. Impression: 1. Nothing acute is seen on two-view chest x-ray. No significant change is seen from previous study. Diagnostic code #1
== END 2017-08-18 19:40 | disposition home or self-care (01) ==
LOC: JD.ED 16:04
DX: J06.9 Acute upper respiratory infection, unspecified (principal); J02.9 Acute pharyngitis, unspecified; Z87.891 Personal history of nicotine dependence; Z91.011 Allergy to milk products
CPT/HCPCS: 36415; 71046; 80053; 81001; 85025; 86140; 87081; 87430; 96361; 96374; 96375; 99284; J1170; J2405; J7040; J7050

== ENCOUNTER 2017-09-29 18:01 | Emergency (ER) | payer SELFPAY ==
--- NOTE | 2017-09-29 19:22 | EDM.PDOC ---
ED HPI GENERAL MEDICAL PROBLEM - General Chief Complaint: Skin Complaint Stated Complaint: RASH Time Seen by Provider: 09/29/17 18:45 Source of Information: Reports: Patient History Limitations: Reports: No Limitations - History of Present Illness INITIAL COMMENTS - FREE TEXT/NARRATIVE: Patient developed a rash to the chest, back, abdomen, upper/lower extremities a few days ago. States the rash initially started on his left forearm and has since spread. The rash is patchy, small pin point lesions with what appears to be a few white comedones present. State the rash does not itch nor is it painful. He does not recall exposure to new chemicals, lotions, soaps, detergents, oils, and or greese. Patient works at one the local [employer]. Children at home with no similar findings. He has no rash between his fingers/toes or findings concerning for burrowing suggesting scabies. He has never had a rash as such. MOre concentrated to the left forearm, patchy everywhere else. He denies any other complaints. - Related Data Allergies Allergy/AdvReac Type Severity Reaction Status Date / Time milk Allergy Cannot Verified 09/29/17 18:14 Remember Home Meds: Home Meds . [No Known Home Meds] 05/28/17 [History] Past Medical History - Past Health History Medical/Surgical History: Denies Medical/Surgical History - Past Surgical History GI Surgical History: Reports: Hernia, Abdominal Other GI Surgeries/Procedures: with mesh Musculoskeletal Surgical History: Reports: Other (See Below) Other Musculoskeletal Surgeries/Procedures:: left knee surgery, right hand surgery Social & Family History - Family History Family Medical History: Noncontributory - Tobacco Use Smoking Status *Q: Never Smoker - Caffeine Use Caffeine Use: Reports: Soda - Recreational Drug Use Recreational Drug Use: No - Living Situation & Occupation Living situation: Reports: , with Spouse Occupation: Unemployed ED ROS GENERAL - Review of Systems Review Of Systems: See Below Constitutional: Denies: Fever, Chills, Malaise Respiratory: Reports: No Symptoms Cardiovascular: Reports: No Symptoms Musculoskeletal: Reports: No Symptoms Skin: Reports: Rash Neurological: Reports: No Symptoms ED EXAM, SKIN/RASH Exam: See Below Exam Limited By: No Limitations General Appearance: Alert, WD/WN, No Apparent Distress Eye Exam: Bilateral Eye: Normal Inspection Ears: Hearing Grossly Normal Nose: Normal Inspection Throat/Mouth: Normal Inspection, Normal Oropharynx, Normal Voice, No Airway Compromise Head: Atraumatic, Normocephalic Neck: Normal Inspection, Supple Respiratory/Chest: No Respiratory Distress, Lungs Clear, Normal Breath Sounds Cardiovascular: Normal Peripheral Pulses, Regular Rate, Rhythm Peripheral Pulses: 2+: Radial (L) Extremities: Normal Range of Motion, Non-Tender Neurological: Alert, Oriented, CN II-XII Intact, Normal Cognition, No Motor/ Sensory Deficits Psychiatric: Normal Affect, Normal Mood Skin: Warm, Dry, Rash. No: Increased Warmth, Lymphangitis, Zoster-Like Rash Location, Skin: Chest, Abdomen, Back, Upper Extremity, Right, Upper Extremity, Left, Lower Extremity, Right, Lower Extremity, Left. No: Head, Face, Neck, Palms, Soles, Axillary Characteristics: Papular, Fine, Patchy, Other (Small lesions consistent for folliculitis present. Hair follicles whin the pin point areas present. ). No: Confluent Associated features: No: Warmth, Tenderness, Swelling, Induration, Scaling, Lymphangitis, Inflammation, Crusting, Weeping Course - Vital Signs Last Recorded V/S: Last Vital Signs Temp 97.9 F 09/29/17 18:11 Pulse 79 09/29/17 18:11 Resp 18 09/29/17 18:11 BP 114/85 09/29/17 18:11 Pulse Ox 99 09/29/17 18:11 - Re-Assessments/Exams Free Text/Narrative Re-Assessment/Exam: Patient has small pinpoint lesions consistent with folliculitis to his arms, back, chest and lower legs. Hair follicles present. There is no burrowing noted concerning for scabies. Lesions are not pruritic. Patient has no notable excoriations to reachable areas. These shell self resolve. No medication treatment required at this time. Patient will be discharged home with instructions. Signs and symptoms to return to the E.D. discussed with the patient with all questions answered. Patient voiced understanding. Departure - Departure Time of Disposition: 19:18 Disposition: Home, Self-Care 01 Condition: Good Clinical Impression: Folliculitis - Discharge Information Instructions: Rash Referrals: PCP,None [Primary Care Provider] - Forms: ED Department Discharge Additional Instructions: Ensure cleansing sites twice daily with soap and water, pat dry. Do not scratch the lesions. Lesions should resolve over the next two days with no medication treatment needed. Followup with PCP in the next few days for reevaluation if symptoms persist. Return to the E.D. if you should experience any new or worsening symptoms.
== END 2017-09-29 19:30 | disposition home or self-care (01) ==
LOC: JD.ED 18:01
DX: L73.9 Follicular disorder, unspecified (principal); Z91.011 Allergy to milk products
CPT/HCPCS: 99283

== ENCOUNTER 2018-10-28 05:44 | Emergency (ER) | payer OTHER ==
[2018-10-28] MEDS ORDERED: Ondansetron 4 MG/2 ML SDV IVPUSH ONE (06:18)
[2018-10-28] MEDS ORDERED: Sodium Chloride 0.9% 1,000 ML IV ONE (06:18)
--- NOTE | 2018-10-28 06:27 | EDM.PDOC ---
ED HPI GENERAL MEDICAL PROBLEM - General Chief Complaint: Gastrointestinal Problem Stated Complaint: ABDOMINAL PAIN/VOMITING Time Seen by Provider: 10/28/18 05:55 Source of Information: Reports: Patient History Limitations: Reports: Other (Somewhat manic) - History of Present Illness INITIAL COMMENTS - FREE TEXT/NARRATIVE: The patient seems anxious and somewhat manic. He has rapid, non-fluid speech, with some loosening of association. He required redirection several times in order to obtain a meaningful history. It is noted that his oxygen saturation is 100% on room air. He states that he had watery diarrhea yesterday, then developed abdominal pain, nausea, and vomiting last night. He describes his abdominal pain is crampy and sharp, and gassy. He also reports urinary urgency since last night. It is unclear if he has urinary frequency, but it does not sound like it, and he denies dysuria. No recent fever. Despite having diarrhea, the patient states that he felt like he needed to defecate, therefore took several water enemas yesterday. The patient states that he has had similar abdominal complaints, about every 2 weeks, since 2015, and indeed, review of a prior medical record from 07/22/2017, when he was seen by me in this ED, he had virtually identical symptoms. The patient states that he has not had a prior medical evaluation, other than ED visits for his symptoms. The patient does not have a PCP. Middle Abdomen Pain Score (Numeric/FACES): 8 - Related Data Allergies Allergy/AdvReac Type Severity Reaction Status Date / Time milk Allergy Cannot Verified 10/28/18 05:57 Remember Home Meds: Home Meds . [No Known Home Meds] 10/28/18 [History] Past Medical History - Past Surgical History GI Surgical History: Reports: Hernia, Abdominal (periumbilical, 2016) Social & Family History - Family History Family Medical History: Noncontributory - Tobacco Use Smoking Status *Q: Current Every Day Smoker Years of Tobacco use: 23 Packs/Tins Daily: 0.2 Packs/Tins Daily Comment: Down from 02/09 ppd - Caffeine Use Caffeine Use: Reports: Soda - Alcohol Use Alcohol Use History: Yes Alcohol Use Frequency: Rarely - Recreational Drug Use Recreational Drug Use: Yes Drug Use in Last 12 Months: Yes Recreational Drug Type: Reports: Marijuana/Hashish (last smoked August 2018), Methamphetamine (last smoked/injected Mar 2018) - Living Situation & Occupation Living situation: Reports: , with Spouse Occupation: Employed ([employer]) ED ROS GENERAL - Review of Systems Review Of Systems: ROS reveals no pertinent complaints other than HPI. ED EXAM, GI/ABD - Physical Exam Exam: See Below Exam Limited By: No Limitations General Appearance: Alert, WD/WN, Anxious Eyes: Bilateral: Normal Appearance, EOMI Ears: Normal External Exam, Hearing Grossly Normal Nose: Normal Inspection Throat/Mouth: Normal Inspection, Normal Lips, Normal Voice, No Airway Compromise Head: Atraumatic, Normocephalic Neck: Normal Inspection, Full Range of Motion Respiratory/Chest: No Respiratory Distress, Lungs Clear, Normal Breath Sounds, No Accessory Muscle Use Cardiovascular: Normal Peripheral Pulses, Regular Rate, Rhythm, No Edema, No Gallop, No JVD, No Murmur, No Rub GI/Abdominal Exam: Normal Bowel Sounds, Soft, Non-Tender, No Organomegaly, No Distention, No Abnormal Bruit, No Mass (Male) Exam: Deferred Rectal (Males) Exam: Deferred Back Exam: Normal Inspection, Full Range of Motion, NT Extremities: Normal Inspection, Normal Range of Motion, No Pedal Edema, Normal Capillary Refill Neurological: Alert, Oriented, Normal Cognition, No Motor/Sensory Deficits Psychiatric: Normal Affect Skin Exam: Warm, Dry, Intact, Normal Color, No Rash Course - Vital Signs Last Recorded V/S: Last Vital Signs Temp 36.3 C 10/28/18 05:51 Pulse 104 H 10/28/18 05:51 Resp 20 10/28/18 05:51 BP 135/91 H 10/28/18 05:51 Pulse Ox 100 10/28/18 05:51 - Orders/Labs/Meds Orders: Active Orders 24 hr Category Date Time Status Sodium Chloride 0.9% [Normal Saline] 1,000 ml Med 10/28/18 06:18 Active IV ONETIME Medication Orders Sodium Chloride (Normal Saline) 1,000 mls @ 999 mls/hr IV ONETIME ONE Stop: 10/28/18 07:18 Last Admin: 10/28/18 06:33 Dose: 999 mls/hr Labs: Laboratory Tests 10/28/18 10/28/18 10/28/18 Range/Units 05:20 05:20 06:25 WBC 8.05 (4.23-9.07) K/mm3 RBC 4.54 L (4.63-6.08) M/mm3 Hgb 14.2 (13.7-17.5) gm/dl Hct 40.7 (40.1-51.0) % MCV 89.6 (79.0-92.2) fl MCH 31.3 (25.7-32.2) pg MCHC 34.9 (32.2-35.5) g/dl RDW Std Deviation 41.1 (35.1-43.9) fL Plt Count 222 (163-337) K/mm3 MPV 10.0 (9.4-12.3) fl Neutrophils % (Manual) 75 H (40-60) % Band Neutrophils % 0 (0-10) % Lymphocytes % (Manual) 18 L (20-40) % Atypical Lymphs % 0 % Monocytes % (Manual) 3 (2-10) % Eosinophils % (Manual) 4 (0.8-7.0) % Basophils % (Manual) 0 L (0.2-1.2) Platelet Estimate Adequate Plt Morphology Comment Normal RBC Morph Comment Normal Sodium (136-145) mEq/L Potassium (3.5-5.1) mEq/L Chloride (98-107) mEq/L Carbon Dioxide (21-32) mEq/L Anion Gap (5-15) BUN (7-18) mg/dL Creatinine (0.7-1.3) mg/dL Est Cr Clr Drug Dosing mL/min Estimated GFR (MDRD) (>60) mL/min BUN/Creatinine Ratio (14-18) Glucose (74-106) mg/dL Calcium (8.5-10.1) mg/dL Magnesium (1.8-2.4) mg/dl Total Bilirubin (0.2-1.0) mg/dL AST (15-37) U/L ALT (16-63) U/L Alkaline Phosphatase (46-116) U/L Total Protein (6.4-8.2) g/dl Albumin (3.4-5.0) g/dl Globulin gm/dL Albumin/Globulin Ratio (1-2) Lipase (73-393) U/L Urine Color Yellow (Yellow) Urine Appearance Clear (Clear) Urine pH 6.5 (5.0-8.0) Ur Specific [place] > or = 1.030 (1.005-1.030) Urine Protein Negative (Negative) Urine Glucose (UA) Negative (Negative) Urine Ketones Negative (Negative) Urine Occult Blood Negative (Negative) Urine Nitrite Negative (Negative) Urine Bilirubin Negative (Negative) Urine Urobilinogen 0.2 (0.2-1.0) Ur Leukocyte Esterase Negative (Negative) Urine RBC Not seen (0-5) /hpf Urine WBC Not seen (0-5) /hpf Ur Squamous Epith Cells 0-5 (0-5) /hpf Urine Bacteria Not seen (FEW) /hpf Urine Mucus Rare (FEW) /hpf Urine Opiates Screen Negative (NYOUXX=635) Ur Buprenorphine Scrn Negative (CUTOFF=10) Ur Oxycodone Screen Negative (QVI4MX=372) Urine Methadone Screen Negative (GXP4CL=129) Ur Propoxyphene Screen Negative (EKUEUS=378) Ur Barbiturates Screen Negative (TAUYXC=022) Ur Tricyclics Screen Negative (MGUQKK=107) Ur Phencyclidine Scrn Negative (CUTOFF=25) Ur Amphetamine Screen Presumptive positive H (WCGSGT=998) U Methamphetamines Scrn Presumptive positive H (KSKEMI=069) U Benzodiazepines Scrn Negative (JNROYA=390) U Cocaine Metab Screen Negative (TMRYWV=363) U Marijuana (THC) Screen Negative (CUTOFF=50) 10/28/18 Range/Units 06:25 WBC (4.23-9.07) K/mm3 RBC (4.63-6.08) M/mm3 Hgb (13.7-17.5) gm/dl Hct (40.1-51.0) % MCV (79.0-92.2) fl MCH (25.7-32.2) pg MCHC (32.2-35.5) g/dl RDW Std Deviation (35.1-43.9) fL Plt Count (163-337) K/mm3 MPV (9.4-12.3) fl Neutrophils % (Manual) (40-60) % Band Neutrophils % (0-10) % Lymphocytes % (Manual) (20-40) % Atypical Lymphs % % Monocytes % (Manual) (2-10) % Eosinophils % (Manual) (0.8-7.0) % Basophils % (Manual) (0.2-1.2) Platelet Estimate Plt Morphology Comment RBC Morph Comment Sodium 139 (136-145) mEq/L Potassium 3.9 (3.5-5.1) mEq/L Chloride 103 (98-107) mEq/L Carbon Dioxide 26 (21-32) mEq/L Anion Gap 13.9 (5-15) BUN 15 (7-18) mg/dL Creatinine 1.0 (0.7-1.3) mg/dL Est Cr Clr Drug Dosing 97.85 mL/min Estimated GFR (MDRD) > 60 (>60) mL/min BUN/Creatinine Ratio 15.0 (14-18) Glucose 99 (74-106) mg/dL Calcium 8.7 (8.5-10.1) mg/dL Magnesium 2.2 (1.8-2.4) mg/dl Total Bilirubin 1.3 H (0.2-1.0) mg/dL AST 16 (15-37) U/L ALT 26 (16-63) U/L Alkaline Phosphatase 55 (46-116) U/L Total Protein 7.2 (6.4-8.2) g/dl Albumin 3.9 (3.4-5.0) g/dl Globulin 3.3 gm/dL Albumin/Globulin Ratio 1.2 (1-2) Lipase 111 (73-393) U/L Urine Color (Yellow) Urine Appearance (Clear) Urine pH (5.0-8.0) Ur Specific [place] (1.005-1.030) Urine Protein (Negative) Urine Glucose (UA) (Negative) Urine Ketones (Negative) Urine Occult Blood (Negative) Urine Nitrite (Negative) Urine Bilirubin (Negative) Urine Urobilinogen (0.2-1.0) Ur Leukocyte Esterase (Negative) Urine RBC (0-5) /hpf Urine WBC (0-5) /hpf Ur Squamous Epith Cells (0-5) /hpf Urine Bacteria (FEW) /hpf Urine Mucus (FEW) /hpf Urine Opiates Screen (OROZBD=094) Ur Buprenorphine Scrn (CUTOFF=10) Ur Oxycodone Screen (QDJ7JB=109) Urine Methadone Screen (GVJ6ZK=176) Ur Propoxyphene Screen (SAKAZW=320) Ur Barbiturates Screen (MNFIMN=914) Ur Tricyclics Screen (IAOLQZ=193) Ur Phencyclidine Scrn (CUTOFF=25) Ur Amphetamine Screen (YRPMNP=752) U Methamphetamines Scrn (ZDAWSS=545) U Benzodiazepines Scrn (GPLLWS=616) U Cocaine Metab Screen (XNAFHK=469) U Marijuana (THC) Screen (CUTOFF=50) Meds: Medications Generic Name Dose Route Start Last Admin Trade Name Freq PRN Reason Stop Dose Admin Sodium Chloride 1,000 mls @ 999 mls/hr 10/28/18 06:18 10/28/18 06:33 Normal Saline IV 10/28/18 07:18 999 mls/hr ONETIME ONE Administration Discontinued Medications Generic Name Dose Route Start Last Admin Trade Name Freq PRN Reason Stop Dose Admin Lorazepam 1 mg 10/28/18 07:02 10/28/18 07:14 Ativan PO 10/28/18 07:03 1 mg ONETIME ONE Administration Ondansetron HCl 4 mg 10/28/18 06:18 10/28/18 06:34 Zofran IVPUSH 10/28/18 06:19 4 mg ONETIME ONE Administration - Re-Assessments/Exams Free Text/Narrative Re-Assessment/Exam: 10/28/18 06:20 By history, the patient has simple gastroenteritis, however, he appears to be very anxious and somewhat manic. He acknowledged that he has both smoked and injected methamphetamine in the past, but states that the last time he used methamphetamine was in March of this year. His abdominal exam is benign - it is soft, he has normoactive bowel sounds, and does not appear to be at all tender when distracted. I am therefore not recommending a CT scan of his abdomen and pelvis, however, I have ordered some blood work, a urinalysis, and a urine drug screen. If the patient can provide a stool sample, I will send it for C. difficile and culture. In the meantime, I have ordered some IV fluid and IV Zofran. I will order some Ativan after the patient provides a urine sample. 10/28/18 07:03 The patient's CBC is unremarkable. His CMP is marked will only for a total bilirubin slightly elevated at 1.3, and is otherwise unremarkable. His magnesium level is within normal limits at 2.2. His lipase level is within normal limits at 111. His urinalysis is unremarkable. His urine drug screen is positive for amphetamine/methamphetamine. It appears that the patient's manic-like behavior is due to methamphetamine abuse. I have ordered 1 mg of oral Ativan. I will discharge him home with the strong recommendation that he follow-up at [facility], and I will refer him to a PCP. 10/28/18 07:09 Test results discussed with the patient. The patient is adamant that he has not used methamphetamine recently, and states that he does not know how it could be in his system. Departure - Departure Time of Disposition: 07:10 Disposition: Home, Self-Care 01 Condition: Good Clinical Impression: Gastroenteritis, Methamphetamine abuse - Discharge Information *PRESCRIPTION DRUG MONITORING PROGRAM REVIEWED*: Not Applicable *COPY OF PRESCRIPTION DRUG MONITORING REPORT IN PATIENT SATYA: Not Applicable Referrals: Jose Wilson MD [Physician] - Forms: ED Department Discharge Additional Instructions: You were seen in the emergency room for recurrent abdominal pain, nausea, vomiting, watery diarrhea, and the sensation that you need to urinate often. Workup in the ER included blood work, a urinalysis, and a urine drug screen. Your urine drug screen returned positive for methamphetamine. The remainder of your workup was unremarkable. It is possible that your nausea, vomiting, diarrhea, and abdominal cramps are due to viral gastroenteritis, however, they may also be related to methamphetamine. We strongly recommend that you seek professional help with respect to your methamphetamine use at [facility]: [phone] [phone] You may follow-up with Dr. Jose Gonzalez, or one of the other providers in the clinic, to establish a primary care provider. If any other problems, please do not hesitate to return to the ER. - My Orders Last 24 Hours: My Active Orders 10/28/18 06:18 Sodium Chloride 0.9% [Normal Saline] 1,000 ml IV ONETIME - Assessment/Plan Last 24 Hours: My Active Orders 10/28/18 06:18 Sodium Chloride 0.9% [Normal Saline] 1,000 ml IV ONETIME
[2018-10-28] MEDS ORDERED: LORazepam 1 MG Tab PO ONE (07:02)
== END 2018-10-28 07:29 | disposition home or self-care (01) ==
LOC: JD.ED 05:44
DX: K52.9 Noninfective gastroenteritis and colitis, unspecified (principal); F15.10 Other stimulant abuse, uncomplicated; F17.210 Nicotine dependence, cigarettes, uncomplicated; Z91.011 Allergy to milk products
CPT/HCPCS: 36415; 80053; 80306; 81001; 83690; 83735; 85007; 85027; 96361; 96374; 99284; A9270; J2405; J7040

== ENCOUNTER 2018-10-30 19:11 | Emergency (ER) | payer OTHER ==
[2018-10-30] MEDS ORDERED: Ondansetron 4 MG Tab.DIS PO ONE (19:54)
--- NOTE | 2018-10-30 22:24 | EDM.PDOC ---
ED HPI GENERAL MEDICAL PROBLEM - General Chief Complaint: Abdominal Pain Stated Complaint: ABDOMINAL PAIN Time Seen by Provider: 10/30/18 19:30 Source of Information: Reports: Patient History Limitations: Reports: No Limitations - History of Present Illness INITIAL COMMENTS - FREE TEXT/NARRATIVE: 38-year-old male presents for evaluation and treatment of abdominal pain. Patient reports he has been experiencing pain for last few days. Use in the ER 2 days ago. records show that he was appearing to be manic. Patient abuses methamphetamine. Patient reports he continues to have abdominal pain and vomiting. He reports that his last bowel movement was today, was hard to pass. He has appreciated bright red blood in his stool. He states that he is not passing much gas. Reports decreased appetite, back pain and body aches. He denies any dysuria or any urinary symptoms. States he has been using alkalizer but continues to have pain. He states that eating or drinking 1 greatly worsen his pain and causes him to have emesis. Reports nieces ill with similar symptoms. Reports traveled to [place] recently but no other recent travel Lower Abdominal Pain Score (Numeric/FACES): 8 - Related Data Allergies Allergy/AdvReac Type Severity Reaction Status Date / Time milk Allergy Cannot Verified 10/30/18 19:25 Remember Home Meds: Home Meds Omeprazole 20 mg PO DAILY #30 tablet.dr 10/30/18 [Rx] Ondansetron [Zofran ODT] 4 mg PO Q6H PRN #20 tab.dis 10/30/18 [Rx] Past Medical History - Past Health History Medical/Surgical History: Denies Medical/Surgical History Gastrointestinal History: Reports: Chronic Constipation - Past Surgical History GI Surgical History: Reports: Hernia, Abdominal Musculoskeletal Surgical History: Reports: Other (See Below) Other Musculoskeletal Surgeries/Procedures:: left knee surgery, right hand surgery Social & Family History - Family History Family Medical History: Noncontributory - Tobacco Use Smoking Status *Q: Never Smoker - Caffeine Use Caffeine Use: Reports: Soda - Recreational Drug Use Recreational Drug Use: No - Living Situation & Occupation Living situation: Reports: , with Spouse Occupation: Employed ([employer]) ED ROS GENERAL - Review of Systems Review Of Systems: See Below Constitutional: Reports: Decreased Appetite GI/Abdominal: Reports: Abdominal Pain, Constipation, Hematochezia, Nausea, Vomiting. Denies: Flatus (reports decreased flatus) : Reports: No Symptoms Musculoskeletal: Reports: Back Pain ED EXAM, GI/ABD - Physical Exam Exam: See Below Exam Limited By: No Limitations General Appearance: Alert, WD/WN, No Apparent Distress Throat/Mouth: Normal Inspection, Normal Voice, No Airway Compromise Respiratory/Chest: No Respiratory Distress, Lungs Clear, Normal Breath Sounds Cardiovascular: Normal Peripheral Pulses, Regular Rate, Rhythm, No Murmur GI/Abdominal Exam: Soft, Non-Tender, No Distention, Abnormal Bowel Sounds ( tympanic sounding bowel sounds) Neurological: Alert, Oriented, Normal Cognition Psychiatric: Normal Affect, Normal Mood Skin Exam: Warm, Dry, Normal Color Course - Vital Signs Last Recorded V/S: Last Vital Signs Temp 98.2 F 10/30/18 19: Pulse 83 10/30/18 19: Resp 17 10/30/18 19:22 BP 132/94 H 10/30/18 19:22 Pulse Ox 97 10/30/18 19:22 - Orders/Labs/Meds Labs: Laboratory Tests 10/30/18 10/30/18 10/30/18 Range/Units 20:04 20:04 20:20 WBC 4.70 (4.23-9.07) K/mm3 RBC 4.18 L (4.63-6.08) M/mm3 Hgb 13.0 L (13.7-17.5) gm/dl Hct 37.5 L (40.1-51.0) % MCV 89.7 (79.0-92.2) fl MCH 31.1 (25.7-32.2) pg MCHC 34.7 (32.2-35.5) g/dl RDW Std Deviation 40.9 (35.1-43.9) fL Plt Count 209 (163-337) K/mm3 MPV 9.8 (9.4-12.3) fl Neutrophils % (Manual) 48 (40-60) % Band Neutrophils % 0 (0-10) % Lymphocytes % (Manual) 39 (20-40) % Atypical Lymphs % 0 % Monocytes % (Manual) 8 (2-10) % Eosinophils % (Manual) 5 (0.8-7.0) % Basophils % (Manual) 0 L (0.2-1.2) Platelet Estimate Adequate RBC Morph Comment Normal Sodium 140 (136-145) mEq/L Potassium 3.3 L (3.5-5.1) mEq/L Chloride 104 (98-107) mEq/L Carbon Dioxide 28 (21-32) mEq/L Anion Gap 11.3 (5-15) BUN 9 (7-18) mg/dL Creatinine 0.9 (0.7-1.3) mg/dL Est Cr Clr Drug Dosing 108.72 mL/min Estimated GFR (MDRD) > 60 (>60) mL/min BUN/Creatinine Ratio 10.0 L (14-18) Glucose 116 H (74-106) mg/dL Calcium 8.8 (8.5-10.1) mg/dL Total Bilirubin 0.6 (0.2-1.0) mg/dL AST 9 L (15-37) U/L ALT 22 (16-63) U/L Alkaline Phosphatase 51 (46-116) U/L C-Reactive Protein 3.4 H* (<1.0) mg/dL Total Protein 6.4 (6.4-8.2) g/dl Albumin 3.4 (3.4-5.0) g/dl Globulin 3.0 gm/dL Albumin/Globulin Ratio 1.1 (1-2) Lipase 97 (73-393) U/L Urine Color Yellow (Yellow) Urine Appearance Clear (Clear) Urine pH 8.5 H (5.0-8.0) Ur Specific [place] 1.020 (1.005-1.030) Urine Protein Negative (Negative) Urine Glucose (UA) Negative (Negative) Urine Ketones Negative (Negative) Urine Occult Blood Negative (Negative) Urine Nitrite Negative (Negative) Urine Bilirubin Negative (Negative) Urine Urobilinogen 1.0 (0.2-1.0) Ur Leukocyte Esterase Negative (Negative) Urine RBC 0-5 (0-5) /hpf Urine WBC 0-5 (0-5) /hpf Ur Squamous Epith Cells Not seen (0-5) /hpf Urine Bacteria Occasional (FEW) /hpf Urine Mucus Few (FEW) /hpf Meds: Medications Discontinued Medications Generic Name Dose Route Start Last Admin Trade Name Freq PRN Reason Stop Dose Admin Iopamidol 100 ml 10/30/18 22:50 10/30/18 22:52 Isovue-300 (61%) IVPUSH 10/30/18 22:51 100 ml ONETIME ONE Administration Ondansetron HCl 4 mg 10/30/18 19:54 10/30/18 19:59 Zofran Odt PO 10/30/18 19:55 4 mg ONETIME ONE Administration - Radiology Interpretation Free Text/Narrative:: flat and upright shows a few scattered air fluids lines coleen normal gas pattern. no intestinal dilation. formal radiology read pending. CT of the abdomen and pelvis with IV and oral contrast impression per vrad shows mild enteritis - Re-Assessments/Exams Free Text/Narrative Re-Assessment/Exam: 10/30/18 23:14 I reviewed the las and imaging with the patient. Will discharge home at this time with prescriptions for omeprazole and zofran. follow-up in the clinic. Discharge instructions as documented. Departure - Departure Time of Disposition: 23:15 Disposition: Home, Self-Care 01 Condition: Good Clinical Impression: Enteritis - Discharge Information *PRESCRIPTION DRUG MONITORING PROGRAM REVIEWED*: No *COPY OF PRESCRIPTION DRUG MONITORING REPORT IN PATIENT SATYA: No Prescriptions: Omeprazole 20 mg PO DAILY #30 tablet. Ondansetron [Zofran ODT] 4 mg PO Q6H PRN #20 tab.dis PRN Reason: Nausea Referrals: PCP,None [Primary Care Provider] - Lindsey Castano PA-C [Physician [employer]] - Forms: ED Department Discharge Additional Instructions: Take the omeprazole prescribed. 1 cap daily. Zofran 1 tab every 6 to 8 Hours As Needed for Nausea. Recommend Drinking Plenty of Fluids. Recommend a [place] Diet such as Soup Broth, Crackers, Bananas, Applesauce, Etc. Recommend a probiotic. These are available [id number]. Follow up with your primary care provider should you may need to discuss an endoscopy for further evaluation of your symptoms. Please return to the ER for symptoms change or worsen.
[2018-10-30] MEDS ORDERED: Iopamidol 612 MG/ML 100 ML Bottle IVPUSH ONE (22:50)
--- NOTE | 2018-10-31 07:10 | CT ---
CT abdomen and pelvis Technique: Multiple axial sections were obtained from above the dome of the diaphragm inferiorly through the pubic symphysis. Intravenous and oral contrast was utilized. Delayed images were also obtained through the bladder. Comparison: Prior CT pelvis study of 07/22/17. Findings: Visualized lung bases show nothing acute. Liver shows no focal parenchymal abnormality. Gallbladder contains no calcified gallstones. Spleen appears within normal limits. Adrenal glands show no nodule. Kidneys show symmetric contrast enhancement without hydronephrosis or mass. Pancreas is within normal limits. Aorta shows no aneurysm. No retroperitoneal adenopathy or mesenteric abnormalities are seen. No pelvic mass or adenopathy is identified. Delayed images show contrast within the distal ureters and within the bladder. Appendix is seen and is normal in size. Slightly prominent size of several proximal small bowel loops. These findings are most likely due to hypertonic effect of contrast. Difficult to exclude minimal gastroenteritis if patient has correlating symptoms. Bone window settings were reviewed which showed no acute osseous abnormality. Impression: 1. Questionable increased size of several proximal small bowel loops. This may relate to the hypertonic effect of contrast versus a mild gastroenteritis. Please correlate with patient's symptoms. 2. No additional abnormality is seen on CT study of the abdomen and pelvis. Diagnostic code #3 Agree with preliminary report issued by [employer] ([facility] preliminary report dictated on 10/31/18, 12:07 AM Central Time)
--- NOTE | 2018-10-31 08:52 | CR ---
Abdomen: Supine and upright views of the abdomen were obtained. Comparison: Prior abdominal x-ray of 07/20/17. Bowel gas pattern is felt to be within normal limits. No free air is seen. Bony structures appear within normal limits. No abnormal calcifications or soft tissue abnormality is seen. Impression: 1. Nothing acute seen on two-view abdominal x-ray. Diagnostic code #2
== END 2018-10-30 23:25 | disposition home or self-care (01) ==
LOC: JD.ED 19:11
DX: K52.9 Noninfective gastroenteritis and colitis, unspecified (principal); Z91.011 Allergy to milk products
CPT/HCPCS: 36415; 74019; 74177; 80053; 81001; 83690; 85007; 85027; 86140; 99284; A9270; Q9967

== ENCOUNTER 2019-12-11 08:05 | Emergency (ER) | payer SELFPAY ==
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
== END 2019-12-11 08:45 | disposition home or self-care (01) ==
LOC: JD.ED 08:05
DX: R07.89 Other chest pain (principal); Z91.011 Allergy to milk products; Z79.899 Other long term (current) drug therapy
CPT/HCPCS: 99283; 99284

== ENCOUNTER 2020-07-07 03:14 | Emergency (ER) | payer OTHER ==
[2020-07-07] MEDS ORDERED: Albuterol 6.7 GM Inhaler INH ONE (04:25)
--- NOTE | 2020-07-07 04:26 | EDM.PDOC ---
ED HPI GENERAL MEDICAL PROBLEM - General Chief Complaint: Respiratory Problem Stated Complaint: COUGH AND WHEEZING POSSIBLE INFECTION Time Seen by Provider: 07/07/20 04:21 - History of Present Illness INITIAL COMMENTS - FREE TEXT/NARRATIVE: 39-year-old gentleman presents the emergency room with cough and congestion. Patient denies a fever but has had some upper airway congestion and dry nonproductive cough for the last several days. This is been progressively getting a little bit worse. He has not coughed up anything. However his cough seems to get worse when he lies down. He has not had any fever. He has not had any nausea vomiting or other gastrointestinal symptoms. He has some mild to moderate nasal sinus congestion. Patient has no other complaints at this time. - Related Data Allergies Allergy/AdvReac Type Severity Reaction Status Date / Time milk Allergy Cannot Verified 07/07/20 03:24 Remember Home Meds: Home Meds . [No Known Home Meds] 07/07/20 [History] Past Medical History - Past Health History Medical/Surgical History: Denies Medical/Surgical History Gastrointestinal History: Reports: Chronic Constipation, GERD - Past Surgical History GI Surgical History: Reports: EGD, Hernia, Abdominal Other GI Surgeries/Procedures: with mesh Musculoskeletal Surgical History: Reports: Other (See Below) Other Musculoskeletal Surgeries/Procedures:: left knee surgery, right hand surgery Social & Family History - Family History Family Medical History: Unobtainable - Caffeine Use Caffeine Use: Reports: Soda - Recreational Drug Use Recreational Drug Use: Yes Drug Use in Last 12 Months: Yes Recreational Drug Type: Reports: Marijuana/Hashish - Living Situation & Occupation Living situation: Reports: , with Spouse Occupation: Employed ([employer]) ED ROS GENERAL - Review of Systems Review Of Systems: See Below Constitutional: Reports: No Symptoms HEENT: Reports: Rhinitis Respiratory: Reports: Wheezing, Cough. Denies: Shortness of Breath, Pleuritic Chest Pain, Sputum, Hemoptysis Cardiovascular: Reports: No Symptoms GI/Abdominal: Reports: No Symptoms ED EXAM, GENERAL - Physical Exam Exam: See Below Exam Limited By: No Limitations General Appearance: Alert, No Apparent Distress Ears: Normal External Exam, Normal Canal, Hearing Grossly Normal, Normal TMs Nose: Normal Inspection, Normal Mucosa, No Blood, Clear Rhinorrhea Throat/Mouth: Normal Inspection, Normal Lips, Normal Teeth, Normal Gums, Normal Oropharynx, Normal Voice, No Airway Compromise Head: Atraumatic, Normocephalic Neck: Normal Inspection, Supple, Non-Tender, Full Range of Motion. No: Lymphadenopathy (L), Lymphadenopathy (R) Respiratory/Chest: No Respiratory Distress, No Accessory Muscle Use, Other (Patient has some coarse breath sounds with expiration no wheezes crackles or rhonchi) Cardiovascular: Regular Rate, Rhythm, No Edema, No Murmur GI/Abdominal: Normal Bowel Sounds, Soft, Non-Tender Course - Vital Signs Last Recorded V/S: Last Vital Signs Temp 36.7 C 07/07/20 03:25 Pulse 97 07/07/20 03:25 Resp 15 07/07/20 03:25 BP 129/104 H 07/07/20 03:25 Pulse Ox 98 07/07/20 04:42 - Orders/Labs/Meds Orders: Active Orders 24 hr Category Date Time Status RT Post Treatment Assessment [RC] Click to Edit Care 07/07/20 04:26 Active RT Pre-Treatment Assessment [RC] Click to Edit Care 07/07/20 04:26 Active Chest 2V [CR] Stat Exams 07/07/20 04:25 Taken Meds: Medications Discontinued Medications Generic Name Dose Route Start Last Admin Trade Name Freq PRN Reason Stop Dose Admin Albuterol 0 gm 07/07/20 04:25 07/07/20 04:41 Albuterol 6.7 Gm Inhaler INH 07/07/20 04:26 2 puff ONETIME ONE Administration - Re-Assessments/Exams Free Text/Narrative Re-Assessment/Exam: 07/07/20 04:57 Chest x-ray shows no acute changes no cardiopulmonary changes. Patient was started on albuterol MDI this seems to be helping. Departure - Departure Time of Disposition: 04:57 Disposition: Home, Self-Care 01 Clinical Impression: Upper respiratory tract infection, Acute viral bronchitis - Discharge Information Referrals: Lindsey Castano PA-C [Primary Care Provider] - Forms: ED Department Discharge Additional Instructions: Return to the emergency room with any questions problems or worsening symptoms. Follow-up in the clinic at the end of this week if needed. You are given an albuterol inhaler use it at least 2 puffs every 4 hours while awake. Sepsis Event Note (ED) - Evaluation Sepsis Screening Result: No Definite Risk - Focused Exam Vital Signs: Vital Signs Temp Pulse Resp BP Pulse Ox Pulse Ox 07/07/20 04:42 98 07/07/20 03:25 36.7 C 97 15 129/104 H 97 - My Orders Last 24 Hours: My Active Orders 07/07/20 04:25 Chest 2V [CR] Stat 07/07/20 04:26 RT Post Treatment Assessment [RC] Click to Edit RT Pre-Treatment Assessment [RC] Click to Edit - Assessment/Plan Last 24 Hours: My Active Orders 07/07/20 04:25 Chest 2V [CR] Stat 07/07/20 04:26 RT Post Treatment Assessment [RC] Click to Edit RT Pre-Treatment Assessment [RC] Click to Edit
--- NOTE | 2020-07-07 17:27 | CR ---
Chest: 2 views of the chest were obtained. Comparison: Prior chest x-ray of 08/18/17. Heart size and mediastinum are normal. Lungs are clear with no acute parenchymal change. No acute osseous abnormality is appreciated. Impression: 1. Nothing acute is seen on 2 view chest x-ray. Diagnostic code #1
== END 2020-07-07 05:03 | disposition home or self-care (01) ==
LOC: JD.ED 03:14
DX: J20.8 Acute bronchitis due to other specified organisms (principal); J06.9 Acute upper respiratory infection, unspecified
CPT/HCPCS: 71046; 71046-26; 94640; 99283; 99283-25; A9270-GY

== ENCOUNTER 2021-03-16 16:31 | Emergency (ER) | payer BC, OTHER ==
[2021-03-16] MEDS ORDERED: Ondansetron 4 MG Tab.DIS PO ONE (17:05)
[2021-03-16] MEDS ORDERED: LORazepam 1 MG Tab PO ONE ×2 (17:05→18:17)
== END 2021-03-16 19:35 | disposition home or self-care (01) ==
LOC: JD.ED 16:31
DX: T43.611A Poisoning by caffeine, accidental (unintentional), initial encounter (principal); Z72.0 Tobacco use; Z91.011 Allergy to milk products
CPT/HCPCS: 93005; 99284; A9270

== ENCOUNTER 2021-05-29 17:40 | Emergency (ER) | payer BC | END 2021-05-29 19:07 | disposition home or self-care (01) | LOC: JD.ED 17:40 | DX: L03.011 Cellulitis of right finger (principal); Z79.899 Other long term (current) drug therapy; Z91.011 Allergy to milk products | CPT/HCPCS: 73140-26-F6; 73140-F6; 99283; 99284 ==

== ENCOUNTER 2021-06-14 01:29 | Emergency (ER) | payer BC ==
[2021-06-14] MEDS ORDERED: Albuterol 6.7 GM Inhaler INH ONE (01:46)
[2021-06-14 02:48] LABS: CORONAVIRUS COVID-19 NAA NEGATIVE (NEGATIVE)
== END 2021-06-14 02:58 | disposition home or self-care (01) ==
LOC: JD.ED 01:29
DX: J06.9 Acute upper respiratory infection, unspecified (principal); Z91.011 Allergy to milk products; Z20.822 Contact with and (suspected) exposure to COVID-19
CPT/HCPCS: 0241U; 71045; 94640; 99284; A9270

== ENCOUNTER 2021-06-17 10:46 | Emergency (ER) | payer BC ==
[2021-06-17] MEDS ORDERED: Cyclobenzaprine 10 MG Tab PO ONE (11:40)
[2021-06-17] MEDS ORDERED: Ketorolac 15 MG/ML SDV IM ONE (11:41)
[2021-06-17] MEDS ORDERED: Lidocaine 1% 10 ML MDV ONE (12:06)
== END 2021-06-17 13:17 | disposition home or self-care (01) ==
LOC: JD.ED 10:46
DX: R20.2 Paresthesia of skin (principal); K21.9 Gastro-esophageal reflux disease without esophagitis; Z91.011 Allergy to milk products
CPT/HCPCS: 36415; 71045; 80053; 83735; 85025; 96372; 99284; A9270; J1885

== ENCOUNTER 2021-08-06 23:09 | Emergency (ER) | payer BC ==
[2021-08-07] MEDS ORDERED: Diphtheria,Pertussis(Acell),Tetanus Vaccine 0.5 ML Syringe IM ONE (00:04)
[2021-08-07] MEDS ORDERED: Lidocaine 1% 10 ML MDV INJECT ONE (00:18)
== END 2021-08-07 01:15 | disposition home or self-care (01) ==
LOC: JD.ED 23:09
DX: S91.111A Laceration without foreign body of right great toe without damage to nail, initial encounter (principal); F17.210 Nicotine dependence, cigarettes, uncomplicated; Z86.16 Personal history of COVID-19; Z91.011 Allergy to milk products; W22.09XA Striking against other stationary object, initial encounter
CPT/HCPCS: 12001; 73630-26-RT; 73630-RT; 99282; 99283

== ENCOUNTER 2021-11-07 21:58 | Emergency (ER) | payer BC ==
[2021-11-07] MEDS ORDERED: Albuterol/Ipratropium 3.0-0.5 MG/3 ML Neb Soln NEB ONE (23:13)
[2021-11-07] MEDS ORDERED: Sodium Chloride 0.9% 1,000 ML IV SCH (23:30)
[2021-11-08] MEDS ORDERED: Iopamidol 612 MG/ML 100 ML Bottle IVPUSH ONE (00:06)
[2021-11-08] MEDS ORDERED: Iopamidol 612 MG/ML 50 ML SDV IVPUSH ONE (00:06)
[2021-11-08] MEDS ORDERED: HYDROmorphone 0.5 MG/0.5 ML Syringe IVPUSH ONE ×2 (00:18→06:19)
== END 2021-11-08 09:20 | disposition home or self-care (01) ==
LOC: JD.ED 21:58
DX: S20.219A Contusion of unspecified front wall of thorax, initial encounter (principal); S10.93XA Contusion of unspecified part of neck, initial encounter; F17.210 Nicotine dependence, cigarettes, uncomplicated; Z91.011 Allergy to milk products; Z79.899 Other long term (current) drug therapy; Z86.16 Personal history of COVID-19; Y04.0XXA Assault by unarmed brawl or fight, initial encounter
CPT/HCPCS: 36415; 70450; 70491; 71260; 72125; 74177; 80053; 84484; 85025; 93005; 94640; 96361; 96374; 96376; 99284; J1170; J7030; Q9967; J7620-GY

== ENCOUNTER 2021-11-18 08:07 | Emergency (ER) | payer SELFPAY | END 2021-11-18 10:04 | disposition home or self-care (01) | LOC: JD.ED 08:07 | DX: R07.82 Intercostal pain (principal); F17.210 Nicotine dependence, cigarettes, uncomplicated; Z91.011 Allergy to milk products; Z79.899 Other long term (current) drug therapy; Z86.16 Personal history of COVID-19 | CPT/HCPCS: 71046; 71046-26; 93005; 99285 ==

== ENCOUNTER 2021-11-18 18:48 | Emergency (ER) | payer SELFPAY | END 2021-11-18 19:29 | disposition left against medical advice (07) | LOC: JD.ED 18:48 | DX: Z53.21 Procedure and treatment not carried out due to patient leaving prior to being seen by health care provider (principal) ==

== ENCOUNTER 2022-03-04 09:56 | Emergency (ER) | payer OTHER, BC ==
[2022-03-04] MEDS ORDERED: Morphine 4 MG/ML Syringe IVPUSH ONE (10:11)
[2022-03-04] MEDS ORDERED: Lactated Ringers 1,000 ML IV SCH (10:15)
[2022-03-04] MEDS ORDERED: Iopamidol 755 MG/ML 50 ML Bottle IVPUSH ONE (10:16)
[2022-03-04] MEDS ORDERED: Iopamidol 755 Mg/ML 100 ML Bottle IVPUSH ONE (10:16)
[2022-03-04] MEDS: Sodium Chloride 0.9% 10 ML Syringe FLUSH PRN ×2 (10:35→10:53)
[2022-03-04 10:41] LABS: ESTIMATED GFR 111 mL/min (>60)
== END 2022-03-04 12:16 | disposition home or self-care (01) ==
LOC: JD.ED 09:56
DX: R07.81 Pleurodynia (principal); Z91.011 Allergy to milk products; V58.5XXA Driver of pick-up truck or van injured in noncollision transport accident in traffic accident, initial encounter; Y92.410 Unspecified street and highway as the place of occurrence of the external cause
CPT/HCPCS: 36415; 70450; 71260; 72125; 74177; 80053; 85025; 85610; 85730; 96361; 96374; 99284; J2270; J3490; J7120; Q9967

== ENCOUNTER 2022-03-06 18:41 | Emergency (ER) | payer OTHER, BC | END 2022-03-06 21:17 | disposition home or self-care (01) | LOC: JD.ED 18:41 | DX: J01.10 Acute frontal sinusitis, unspecified (principal); Z91.011 Allergy to milk products; Z79.899 Other long term (current) drug therapy; Z86.16 Personal history of COVID-19; Z72.0 Tobacco use | CPT/HCPCS: 71046; 71046-26; 99283; 99284 ==

== ENCOUNTER 2022-03-12 07:59 | Emergency (ER) | payer BC ==
[2022-03-12] MEDS ORDERED: Ketorolac 30 MG/ML SDV IVPUSH ONE (09:13)
== END 2022-03-12 10:21 | disposition home or self-care (01) ==
LOC: JD.ED 07:59
DX: R07.89 Other chest pain (principal); Z91.011 Allergy to milk products
CPT/HCPCS: 71045; 93005; 96374; 99285; J1885; 93010; 99283

== ENCOUNTER 2022-03-13 02:31 | Emergency (ER) | payer BC | END 2022-03-13 03:50 | disposition home or self-care (01) | LOC: JD.ED 02:31 | DX: Z76.5 Malingerer [conscious simulation] (principal); K21.9 Gastro-esophageal reflux disease without esophagitis; F17.210 Nicotine dependence, cigarettes, uncomplicated; Z86.16 Personal history of COVID-19; Z91.011 Allergy to milk products | CPT/HCPCS: 99282; 99283 ==

== ENCOUNTER 2022-04-06 03:51 | Emergency (ER) | payer BC ==
[2022-04-06 05:11] LABS: ESTIMATED GFR 98 mL/min (>60)
== END 2022-04-06 05:53 | disposition home or self-care (01) ==
LOC: JD.ED 03:51
DX: M54.50 Low back pain, unspecified (principal); Z72.0 Tobacco use; Z91.011 Allergy to milk products; Z86.16 Personal history of COVID-19
CPT/HCPCS: 36415; 80053; 81001; 85025; 99283

== ENCOUNTER 2022-11-03 03:24 | Emergency (ER) | payer BC, OTHER ==
[2022-11-03] MEDS ORDERED: traMADol 50 MG Tab PO ONE (03:49)
== END 2022-11-03 03:56 | disposition home or self-care (01) ==
LOC: JD.ED 03:24
DX: M79.641 Pain in right hand (principal); M79.642 Pain in left hand; Z86.16 Personal history of COVID-19; Z91.011 Allergy to milk products
CPT/HCPCS: 99282; 99283

== ENCOUNTER 2023-10-20 01:28 | Emergency (ER) | payer BC ==
[2023-10-20] MEDS: Lidocaine 1% 10 ML MDV INJECT ONE (03:00)
[2023-10-20] MEDS: Bacitracin Oint 15 GM Tube TOP ONE (03:00)
== END 2023-10-20 03:01 ==
LOC: JD.ED 01:28
DX: S01.112A Laceration without foreign body of left eyelid and periocular area, initial encounter (principal); F17.210 Nicotine dependence, cigarettes, uncomplicated; Z79.899 Other long term (current) drug therapy; Z86.16 Personal history of COVID-19; Z91.011 Allergy to milk products; X58.XXXA Exposure to other specified factors, initial encounter; Y92.009 Unspecified place in unspecified non-institutional (private) residence as the place of occurrence of the external cause
CPT/HCPCS: 12011; 99282; A9270; 12001; J3490

== ENCOUNTER 2023-10-28 22:33 | Emergency (ER) | payer BC ==
[2023-10-28] MEDS ORDERED: Lidocaine 1% 10 ML MDV ONE (23:33)
== END 2023-10-28 23:53 | disposition home or self-care (01) ==
LOC: JD.ED 22:33
DX: S01.81XA Laceration without foreign body of other part of head, initial encounter (principal); Z86.16 Personal history of COVID-19; Z79.899 Other long term (current) drug therapy; Z91.011 Allergy to milk products; W20.8XXA Other cause of strike by thrown, projected or falling object, initial encounter
CPT/HCPCS: 12011; 99282; 99283

== ENCOUNTER 2024-08-19 07:19 | Emergency (ER) | payer BC | END 2024-08-19 08:07 | disposition left against medical advice (07) | LOC: JD.ED 07:19 | DX: Z53.21 Procedure and treatment not carried out due to patient leaving prior to being seen by health care provider (principal) ==

== ENCOUNTER 2024-10-25 21:00 | Emergency (ER) | payer BC ==
[2024-10-25] MEDS: Acetaminophen/oxyCODONE 325-5 MG Tab PO ONE (21:57)
[2024-10-25] MEDS: Ketorolac 60 MG/2 ML SDV IM ONE (21:58)
== END 2024-10-25 23:49 | disposition home or self-care (01) ==
LOC: JD.ED 21:00
DX: S62.336A Displaced fracture of neck of fifth metacarpal bone, right hand, initial encounter for closed fracture (principal); F17.200 Nicotine dependence, unspecified, uncomplicated; Z91.011 Allergy to milk products; Z79.899 Other long term (current) drug therapy; W22.8XXA Striking against or struck by other objects, initial encounter
CPT/HCPCS: 29125; 73120; 96372; 99283; A9270; J1885

== ENCOUNTER 2024-12-04 06:58 | Emergency (ER) | payer BC ==
[2024-12-04] MEDS: Ondansetron 4 MG Tab.DIS PO ONE (07:38)
== END 2024-12-04 09:15 | disposition home or self-care (01) ==
LOC: JD.ED 06:58
DX: M79.641 Pain in right hand (principal); R11.0 Nausea; K21.9 Gastro-esophageal reflux disease without esophagitis; F17.200 Nicotine dependence, unspecified, uncomplicated; Z91.0110 Allergy to milk products, unspecified; Z79.899 Other long term (current) drug therapy
CPT/HCPCS: 73130; 99284; A9270; 99282